=== PATIENT | male | born 1955 | race Caucasian/White ===

== ENCOUNTER 2025-10-14 11:09 | Outpatient (AMB) | payer MEDICARE, MEDICAID, SELFPAY ==
--- NOTE | 2025-10-14 11:09 | A.PHYSOV_ITS ---
Vital Signs 10/14/25 11:12 Height 5 ft 7 in Weight 217 lb BMI 34.0 Intake Visit Reasons: Follow up after injection 08/27/25 Intake Note: Patient is a 70 year old male in office today for a follow up after Left L2 transforaminal epidural injection on 08/27/25 Hot Worker Required: Yes Hot Worker Services: Hot Worker Offered & Declined Allergies No Known Allergies Allergy (Verified 10/14/25 11:10) HPI Comments Details: History of Present Illness The patient is a 70-year-old male presenting for a follow-up visit for lower back pain. He was last seen in February 2025 for low back pain with radiation to the left leg, and he has a history of past chiropractic treatments. A lumbosacral spine MRI performed on February 23, 2025, revealed compression of the left L2 nerve root secondary to a foraminal/extraforaminal disc herniation, though his pain presentation was more consistent with an L4 dermatomal distribution. Based on the MRI findings, the patient underwent a left L2 transforaminal injection on August 27, 2025. He reports that the injection provided 2 days of relief to the point that he forgot about his pain, but unfortunately pain returned with a vengeance and now he reports worsened lower back pain since the procedure, noting that he was able to bend before the injection but now finds it more difficult. The patient also has a history of left knee pain, with a left knee X-ray on May 14, 2025 obtained in his [place] [facility], I was able to review the images, showing severe degeneration of the medial compartment. He has tried ibuprofen without relief and experienced a bad reaction to naproxen. He has no history of high blood pressure. He reports increasing cramping in his lower extremities at nighttime. He presents accompanied by his . Pain Description - Location: The patient experiences pain in the lower back with radiation to the left leg and groin area, as well as separate pain in the left knee. - Quality: He describes the back pain as shooting and reports a new sensation like an electric shock that started after his recent injection. - Severity: He rates his current back pain as 8 out of 10, which can increase to 10 out of 10. - Functional Impact: The patient reports he was able to bend before his injection but now finds it much more difficult. Results - Lumbosacral Spine MRI (February 23, 2025): Findings included a foraminal/extraforaminal disc herniation at L2-L3 resulting in compression of the left L2 nerve root. - Left Knee X-ray (May 14, 2025): Showed severe degeneration of the medial compartment. [facility] Medical History (Updated 10/14/25 @ 12:09 by Fred Magana DO) Left knee DJD Left knee pain Lumbar radiculitis Lumbar disc herniation Surgical History History of cholecystectomy (Unknown) Social History Alcohol intake: current Alcohol intake frequency: does not drink Patient Tobacco Use Status: Never used Tobacco Use of substances other than those prescribed or required for medical reasons: No Review of Systems Narrative Review of Systems - Musculoskeletal: Reports low back pain, pain radiating to the left leg, left knee pain, and muscle cramps. - Neurological: Reports shooting pain and a sensation of electric shock in the leg. - Cardiovascular: Denies high blood pressure. Denies change in bowel bladder habits, denies fever or chills Physical Exam Exam Exam: Physical Exam - Musculoskeletal: Patient localizes pain to the lower back. - Gait: Patient limps, which is attributed to knee pain, and uses a cane. Gait was antalgic on the left side. Dural tension signs were negative. Pain with palpation over lower lumbar spinous processes. No pain with palpation over upper lumbar spinous processes. Neurological examination was generally nonfocal with slight weakness of the left hip flexion. Pain with palpation over left knee medial joint line with varus deformity present. No effusion. Patient demonstrated no upper motor neuron signs. Vital Signs: BMI result Body Mass Index 34.0 Assessment & Plan Assessment & Plan (1) Lumbar disc herniation: Code(s): M51.26 - Other intervertebral disc displacement, lumbar region Category: Medical (2) Lumbar radiculitis: Code(s): M54.16 - Radiculopathy, lumbar region Category: Medical (3) Left knee pain: Code(s): M25.562 - Pain in left knee Category: Medical (4) Left knee DJD: Code(s): M17.12 - Unilateral primary osteoarthritis, left knee Category: Medical Plan Pain Management - Analgesia: The patient is not currently taking any pain medication. - Current pain level is 8/10, with a maximum of 10/10. - He has tried ibuprofen in the past with no relief. - A left L2 transforaminal injection on August 27, 2025, reportedly worsened his symptoms. - Adverse Effects: The patient reports a prior adverse reaction to naproxen. - Activities of Daily Living: The patient reports that his ability to bend has worsened since his lumbar injection. - He limps due to his knee and uses a cane. - Aberrant Drug Related Behaviors: None noted. Plan Patient was informed and verbally consented to the use of an ambient scribe for clinic note documentation during this visit. 1. Low Back Pain With Left Radiculopathy The patient's pain has worsened and is located lower than the L2-L3 disc herniation seen on his previous MRI. Due to the worsening of symptoms following the L2 injection and this discrepancy, a repeat MRI of the lumbosacral spine will be ordered to rule out any new pathology. Pending MRI results, a referral to a spine surgeon will be placed for evaluation of the disc herniation, with discussion around a potential minimally invasive procedure. 2. Left Knee Pain The patient has concomitant left knee pain with X-ray evidence of severe medial compartment degeneration. An MRI of the left knee will be ordered for further evaluation. A knee injection may be offered for diagnostic and therapeutic purposes. A referral to a separate surgeon for the knee will be needed. The patient was advised he can purchase a supportive knee brace online. 3. Pain Control The patient has failed ibuprofen and has an intolerance to naproxen. He was advised to take acetaminophen 1000 mg (two 500 mg tablets) two to three times daily as needed for pain. Supplements including magnesium, CoQ10, and a vitamin B complex were suggested for nerve-related symptoms and cramps, as was trying tonic water. Discussion Notes I discussed with the patient that his symptoms have worsened since his left L2 injection and that his current pain location seems to be below the level of the L2-L3 disc herniation identified on his prior MRI. I explained that he appears to have a combination of two problems: his back and nerve issue, and a separate, significant issue with his left knee, which showed severe degeneration on a previous x-ray. I recommended we obtain new MRIs of both his lumbar spine and his left knee to get an updated picture, especially given the change in his symptoms. I informed him that once we have these results, I will refer him to a spine surgeon, and potentially a different surgeon for his knee. For pain management, given his poor response and intolerance to NSAIDs, I recommended he use acetaminophen 1000 mg as needed. I emphasized that he should not delay in getting the ordered imaging studies. Patient Instructions - We have ordered new MRI scans for your lower back and your left knee. - The imaging center will call you to schedule these appointments. - Please do not delay in getting these scans done. - For pain, you may take two 500 mg tablets of acetaminophen (Tylenol) up to 2-3 times per day. - Do not take naproxen or ibuprofen. - For muscle cramps, you can try drinking tonic water and taking supplements like magnesium, CoQ10, and a vitamin B complex. - Once we receive the MRI results, we will discuss the next steps, which will include referrals to specialists for your back and knee. Orders: Orders MR knee LT wo con Today M17.12 - Unilateral primary osteoarthritis, left knee, M25.562 - Pain in left knee MR lumbar spine wo con Today M51.26 - Other intervertebral disc displacement, lumbar region, M54.16 - Radiculopathy, lumbar region Coding Level of Care Code Est Pt Level 4 (37072) Complex visit Add On G2211 Diagnoses Lumbar disc herniation M51.26 Lumbar radiculitis M54.16 Left knee pain M25.562 Left knee DJD M17.12
[2025-10-14 11:12] VITALS: BMI 34.0
== END 2025-10-14 11:45 | disposition home or self-care (01) ==
LOC: HO.HPHYS 11:09
PROVIDERS: PCP Physician Assistant; Visit Provider Physical Medicine & Rehabilitation
DX: M51.26 Other intervertebral disc displacement, lumbar region (principal); M54.16 Radiculopathy, lumbar region; M25.562 Pain in left knee; M17.12 Unilateral primary osteoarthritis, left knee
CPT/HCPCS: 99214; G2211

== ENCOUNTER → 2025-10-14 11:09 | Outpatient (BNVA) | payer MEDICARE, MEDICAID, SELFPAY | PROVIDERS: PCP Physician Assistant; Visit Provider Physical Medicine & Rehabilitation | DX: M17.12 Unilateral primary osteoarthritis, left knee (principal); M25.562 Pain in left knee; M54.16 Radiculopathy, lumbar region; M51.26 Other intervertebral disc displacement, lumbar region | CPT/HCPCS: 99212 ==